=== PATIENT | female | born 1970 | race Caucasian/White ===

== ENCOUNTER 2017-02-05 18:25 | Emergency (ER) | payer MEDICAID ==
[~2017-02-05] VITALS: Ht 167.6 cm; Wt 92.5 kg
[~2017-02-05 18:25] MED LIST: AMO500 PO; HYDR-3720 PO
[2017-02-05 18:28] VITALS: Ht 167.6 cm; Wt 92.5 kg
[2017-02-05] MEDS ORDERED: morphine 4 MG/ML VIAL IV STA (19:30)
[2017-02-05] MEDS ORDERED: ONDANSETRON 4 MG INJ IV STA (19:30)
--- NOTE | 2017-02-05 20:26 | RADRPT ---
PROCEDURE: US Abdomen. CLINICAL INDICATION: Right upper quadrant pain, abdominal pain TECHNIQUE: Multiple real-time images were acquired of the patient's abdomen and retroperitoneum ut ilizing a high resolution transducer. COMPARISON: None FINDINGS: Visualized portions of the pancreatic head and proximal body are unremarkable. The liver is diffus zain increased in echogenicity. This most likely represents fatty infiltration of the liver. The gallbladder is normal without evidence of cholelithiasis, pericholecystic fluid or gallbladder w all thickening. The technologist reports a negative sonographic Ward's sign. The common bile du ct measures 4.3 mm in maximal dimension. No free fluid is identified. The right kidney is unremarkable without evidence of hydronephrosis or mass. The right kidney measu res 11.6 cm in length. IMPRESSION: 1. The liver is diffusely increased in echogenicity. This most likely represents fatty infiltratio n of the liver. 2. Otherwise, no significant abnormalities are identified. RPTAT:AAJJ Physician Keri Date Time Electronically viewed and signed by Physician Keri on 02/05/2017 20:26 /
[2017-02-05 20:40] LABS: BASOPHIL # 0.1 10^3/ul (0.0-0.1); BASOPHILS % 0.5 % (0.0-2.0); EOSINOPHILS # 0.2 10^3/ul (0.0-0.5); EOSINOPHILS % 1.7 % (0.0-7.0); HEMATOCRIT 37.3 % (37.0-47.0); HEMOGLOBIN 11.8 g/dl (12.0-16.0); LYMPHOCYTES # 3.1 10^3/ul (0.8-2.9); LYMPHOCYTES % 25.3 % (15.0-51.0); MEAN CORPUSCULAR HEMOGLOBIN 25.3 pg (29.0-33.0); MEAN CORPUSCULAR HGB CONC 31.6 g/dl (32.0-37.0); MEAN PLATELET VOLUME 10.4 fl (7.4-10.4); MONOCYTE # 0.8 10^3/ul (0.3-0.9); MONOCYTES % 6.7 % (0.0-11.0); NEUTROPHIL # 7.9 10^3/ul (1.6-7.5); NEUTROPHILS % 65.5 % (39.0-77.0); PLATELET COUNT 410 10^3/UL (140-415); RED BLOOD COUNT 4.66 10^6/ul (4.20-5.40); RED CELL DISTRIBUTION WIDTH 16.2 % (11.5-14.5); WHITE BLOOD COUNT 12.1 10^3/ul (4.8-10.8)
[2017-02-05 20:51] LABS: INR 0.81; PROTIME 11.2 Sec (12.2-14.2); PT RATIO 0.9
[2017-02-05 20:52] LABS: PARTIAL THROMBOPLASTIN TIME 26.2 Sec (25.0-35.0)
[2017-02-05 20:55] LABS: ALANINE AMINOTRANSFERASE 41 IU/L (13-69); ALBUMIN 4.9 g/dl (3.3-4.9); ALBUMIN/GLOBULIN RATIO 1.28; ALKALINE PHOSPHATASE 75 IU/L (42-121); ANION GAP 18 (8-16); ASPARTATE AMINO TRANSFERASE 33 IU/L (15-46); BLOOD UREA NITROGEN 12 mg/dl (7-20); CALCIUM 9.6 mg/dl (8.4-10.2); CARBON DIOXIDE 26 mmol/L (21-31); CHLORIDE 104 mmol/L (97-110); CREATININE 0.77 mg/dl (0.44-1.00); GLUCOSE 121 mg/dl (70-220); POTASSIUM 3.5 mmol/L (3.5-5.1); SODIUM 144 mmol/L (135-144); TOTAL PROTEIN 8.7 g/dl (6.1-8.1)
[2017-02-05 21:03] LABS: ADD UMIC YES; UR ASCORBIC ACID NEGATIVE (NEGATIVE); UR BACTERIA FEW /HPF (NONE SEEN); UR BILIRUBIN (Dip) NEGATIVE (NEGATIVE); UR BLOOD (Dip) 3+ mg/dL (NEGATIVE); UR CLARITY CLEAR (CLEAR); UR COLOR YELLOW (YELLOW); UR GLUCOSE (Dip) 2+ mg/dL (NEGATIVE); UR KETONES (Dip) NEGATIVE (NEGATIVE); UR LEUKOCYTE ESTERASE (Dip) TRACE Leu/ul (NEGATIVE); UR NITRITE (Dip) NEGATIVE (NEGATIVE); UR RBC 80 /HPF (0-5); UR SPECIFIC GRAVITY (Dip) 1.013 (1.003-1.030); UR SQUAMOUS EPITHELIAL CELL FEW /HPF (FEW); UR TOTAL PROTEIN (Dip) NEGATIVE (NEGATIVE); UR UROBILINOGEN (Dip) NEGATIVE (NEGATIVE)
[2017-02-05] MEDS ORDERED: SOD CHLORIDE 0.9% 100 ML ONE (21:03)
[2017-02-05] MEDS ORDERED: IOHEXOL 300MG/ML 150 ML BTL ONE (21:03)
[2017-02-05 21:11] LABS: TROPONIN-I < 0.012 ng/ml (0.00-0.12)
--- NOTE | 2017-02-05 21:30 | RADRPT ---
PROCEDURE: CT Abdomen and Pelvis with contrast. CLINICAL INDICATION: Abdominal pain radiating to the back, nausea. TECHNIQUE: A CT scan of the abdomen and pelvis was performed with intravenous contrast. The patie nt was scanned following the uncomplicated intravenous administration of 100 cc of Isovue 300. Maru nal and sagittal reformatted images were obtained from the axial source images. Images were reviewed on a high-resolution PACS workstation. CTDIvol: 22.09 mGy. DLP: 1147.36 mGy-cm. One or more of the following dose reduction techniques were used: - Automated exposure control. - Adjustment of the mA and/or kV according to patient size. - Use of iterative reconstruction technique. COMPARISON: Abdominal ultrasound dated 02/05/2017. FINDINGS: The lung bases are clear. The liver is enlarged (18.2 cm) and diffusely hypodense, consistent with fatty infiltration. The gal lbladder is normal in appearance. The common bile duct is not dilated. The spleen is not enlarged. N o pancreatic lesion is identified and there is no pancreatic ductal dilatation. The adrenal glands a re unremarkable. The kidneys are normal in size. There is no perinephric fat stranding. No hydronephrosis is seen. The small and large bowel are normal in caliber. There is no bowel wall thickening. The appendix is normal. The urinary bladder is unremarkable. There is a 3.8 cm right uterine mass, probably a fibroid. The ovaries are unremarkable. No lymphadenopathy is identified. There is no ascites. No pneumoperitoneum is seen. There are no art erial calcifications. There is no aortic aneurysm or dissection. No suspicious osseous lesion is idenitified. IMPRESSION: 1. No inflammation or lymphadenopathy. 2. Normal appendix. 3. No aortic aneurysm or dissection. 4. Hepatomegaly and fatty infiltration of the liver. 5. 3.8 cm right uterine fibroid. RPTAT: HTAR .Corona Browning MD, Date Time Electronically viewed and signed by .Corona Browning MD, MD on 02/05/2017 21:29 .R/
[2017-02-05] MEDS ORDERED: NAPR-260 PO (21:55)
[2017-02-05] MEDS ORDERED: CEPH-443 PO (21:56)
[2017-02-05 22:10] VITALS: BP 150/84; PULSE 94; RESP 20; TEMP 99.3
--- NOTE | 2017-02-05 23:38 | ERD ---
ER Documentation Chief Complaint Date/Time DATE: 02/05/17 TIME: 23:32 Chief Complaint right sided abd pain x 1 week HPI This patient is a 46-year-old female presenting to the emergency department for right lower abdominal pain ongoing intermittently for the past week. Symptoms are worsening over the past 2 days. The patient also reports nausea. Last bowel movement was this morning and was normal. She is currently on her menstrual cycle. Symptoms are currently moderate in severity. She denies vomiting, diarrhea, urinary symptoms, or other symptoms currently. ROS All systems reviewed and are negative except as per history of present illness. Medications Home Meds Active Scripts Cephalexin* (Keflex*) 500 Mg Capsule, 500 MG PO TID for 7 Days, #21 CAP Prov:ZAHRAA MARSHALL PA-C 02/05/17 Naproxen* (Naprosyn*) 500 Mg Tablet, 500 MG PO BID Y for PAIN AND/OR INFLAMMATION, #30 TAB Prov:ZAHRAA MARSHALL PA-C 02/05/17 Hydrocodone Bit-Acetaminophen* ([place]*) 7.5-325 Tablet, 2 TAB PO Q4H Y for PAIN , #20 TAB Prov:LEKKOS,APOSTOLOS A. DO 03/23/16 Amoxicillin* (Amoxicillin*) 500 Mg Cap, 500 MG PO TID for 10 Days, CAP Prov:LEKKOS,APOSTOLOS A. DO 03/23/16 Allergies Allergies: Coded Allergies: No Known Allergy (Unverified , 03/23/16) PMhx/Soc Medical and Surgical Hx: pt denies Medical Hx, pt denies Surgical Hx History of Surgery: No Anesthesia Reaction: No Hx Neurological Disorder: No Hx Respiratory Disorders: No Hx Cardiac Disorders: No Hx Psychiatric Problems: No Hx Miscellaneous Medical Probl: No Hx Alcohol Use: No Hx Substance Use: No Hx Tobacco Use: No Smoking Status: Never smoker Physical Exam Vitals Vital Signs Date Time Temp Pulse Resp B/P Pulse Ox O2 Delivery O2 Flow Rate FiO2 02/05/17 22:10 99.3 94 20 150/84 99 Room Air 02/05/17 18:28 99.3 96 20 166/87 98 Physical Exam Const: Nontoxic, well-appearing female in mild distress secondary to pain. Head: Atraumatic Eyes: Normal Conjunctiva ENT: Normal External Ears, Nose and Mouth. Neck: Full range of motion..~ No meningismus. Resp: Clear to auscultation bilaterally Cardio: Regular rate and rhythm, no murmurs Abd: Soft, there is some tenderness palpation of the right lower quadrant but no rebound or guarding noted, non distended. Normal bowel sounds Skin: No petechiae or rashes Back: No midline or flank tenderness Ext: No cyanosis, or edema Neur: Awake and alert Psych: Normal Mood and Affect Result Diagram: 02/05/17201402/05/172014 Results 24 hrs Laboratory Tests Test 02/05/17 20:15 White Blood Count 12.110^3/ul Red Blood Count 4.6610^6/ul Hemoglobin 11.8g/dl Hematocrit 37.3% Mean Corpuscular Volume 80.0fl Mean Corpuscular Hemoglobin 25.3pg Mean Corpuscular Hemoglobin Concent 31.6g/dl Red Cell Distribution Width 16.2% Platelet Count 03982^3/UL Mean Platelet Volume 10.4fl Neutrophils % 65.5% Lymphocytes % 25.3% Monocytes % 6.7% Eosinophils % 1.7% Basophils % 0.5% Nucleated Red Blood Cells % 0.0/100WBC Neutrophils # 7.910^3/ul Lymphocytes # 3.110^3/ul Monocytes # 0.810^3/ul Eosinophils # 0.210^3/ul Basophils # 0.110^3/ul Nucleated Red Blood Cells # 0.010^3/ul Prothrombin Time 11.2Sec Prothrombin Time Ratio 0.9 INR International Normalized Ratio 0.81 Activated Partial Thromboplast Time 26.2Sec Urine Color YELLOW Urine Clarity CLEAR Urine pH 6.0 Urine Specific [employer] 1.013 Urine Ketones NEGATIVEmg/dL Urine Nitrite NEGATIVEmg/dL Urine Bilirubin NEGATIVEmg/dL Urine Urobilinogen NEGATIVEmg/dL Urine Leukocyte Esterase TRACELeu/ul Urine Microscopic RBC 80/HPF Urine Microscopic WBC 1/HPF Urine Squamous Epithelial Cells FEW/HPF Urine Bacteria FEW/HPF Urine Hemoglobin 3+mg/dL Urine Glucose 2+mg/dL Urine Total Protein NEGATIVEmg/dl Sodium Level 144mmol/L Potassium Level 3.5mmol/L Chloride Level 104mmol/L Carbon Dioxide Level 26mmol/L Anion Gap 18 Blood Urea Nitrogen 12mg/dl Creatinine 0.77mg/dl Glucose Level 121mg/dl Calcium Level 9.6mg/dl Total Bilirubin 0.0mg/dl Direct Bilirubin 0.00mg/dl Indirect Bilirubin 0.0mg/dl Aspartate Amino Transf (AST/SGOT) 33IU/L Alanine Aminotransferase (ALT/SGPT) 41IU/L Alkaline Phosphatase 75IU/L Troponin I < 0.012ng/ml Total Protein 8.7g/dl Albumin 4.9g/dl Globulin 3.80g/dl Albumin/Globulin Ratio 1.28 Lipase 217U/L Current Medications Medications (Trade) Dose Ordered Sig/Lg Route PRN Reason Start Time Stop Time Status Last Admin Dose Admin Morphine Sulfate (morphine) 4 mg ONCE STAT IV 02/05/17 19:30 02/05/17 19:33 DC 02/05/17 20:23 Ondansetron HCl (Zofran Inj) 4 mg ONCE STAT IV 02/05/17 19:30 02/05/17 19:33 DC 02/05/17 20:22 IV Flush 10 ml 10 ml STK-MED ONCE .ROUTE 02/05/17 21:03 02/05/17 21:04 DC 02/05/17 21:15 Sodium Chloride (NS) 100 ml @ ud STK-MED ONCE .ROUTE 02/05/17 21:03 02/05/17 21:04 DC 02/05/17 21:15 Iohexol (Omnipaque 300mg/ ml) 150 ml STK-MED ONCE .ROUTE 02/05/17 21:03 02/05/17 21:04 DC 02/05/17 21:15 [place] [id number] Radiology Main Line: [phone] DIAGNOSTIC IMAGING REPORT Patient: DALE GRECO : 1970 Age: 46 Sex: F MR #: [id number] DOS: 02/05/17 193 Ordering MD: ZAHRAA MARSHALL PA-C Location: E Room/Bed: PROCEDURE: CT Abdomen and Pelvis with contrast. CLINICAL INDICATION: Abdominal pain radiating to the back, nausea. TECHNIQUE: A CT scan of the abdomen and pelvis was performed with intravenous contrast. The patient was scanned following the uncomplicated intravenous administration of 100 cc of Isovue 300. Coronal and sagittal reformatted images were obtained from the axial source images. Images were reviewed on a high-resolution PACS workstation. CTDIvol: 22.09 mGy. DLP: 1147.36 mGy-cm. One or more of the following dose reduction techniques were used: - Automated exposure control. - Adjustment of the mA and/or kV according to patient size. - Use of iterative reconstruction technique. COMPARISON: Abdominal ultrasound dated 02/05/2017. FINDINGS: The lung bases are clear. The liver is enlarged (18.2 cm) and diffusely hypodense, consistent with fatty infiltration. The gallbladder is normal in appearance. The common bile duct is not dilated. The spleen is not enlarged. No pancreatic lesion is identified and there is no pancreatic ductal dilatation. The adrenal glands are unremarkable. The kidneys are normal in size. There is no perinephric fat stranding. No hydronephrosis is seen. The small and large bowel are normal in caliber. There is no bowel wall thickening. The appendix is normal. The urinary bladder is unremarkable. There is a 3.8 cm right uterine mass, probably a fibroid. The ovaries are unremarkable. No lymphadenopathy is identified. There is no ascites. No pneumoperitoneum is seen. There are no arterial calcifications. There is no aortic aneurysm or dissection. No suspicious osseous lesion is idenitified. IMPRESSION: 1. No inflammation or lymphadenopathy. 2. Normal appendix. 3. No aortic aneurysm or dissection. 4. Hepatomegaly and fatty infiltration of the liver. 5. 3.8 cm right uterine fibroid. RPTAT: HTAR .Corona Browning MD, MD Date Time Electronically viewed and signed by .Corona Browning MD, MD on 02/05/2017 21:29 .R/ CC: ZAHRAA MARSHALL PA-C PROCEDURE: US Abdomen. CLINICAL INDICATION: Right upper quadrant pain, abdominal pain TECHNIQUE: Multiple real-time images were acquired of the patient's abdomen and retroperitoneum utilizing a high resolution transducer. COMPARISON: None FINDINGS: Visualized portions of the pancreatic head and proximal body are unremarkable. The liver is diffusely increased in echogenicity. This most likely represents fatty infiltration of the liver. The gallbladder is normal without evidence of cholelithiasis, pericholecystic fluid or gallbladder wall thickening. The technologist reports a negative sonographic Ward's sign. The common bile duct measures 4.3 mm in maximal dimension. No free fluid is identified. The right kidney is unremarkable without evidence of hydronephrosis or mass. The right kidney measures 11.6 cm in length. IMPRESSION: 1. The liver is diffusely increased in echogenicity. This most likely represents fatty infiltration of the liver. 2. Otherwise, no significant abnormalities are identified. Procedures/MDM EMERGENCY DEPARTMENT COURSE / MEDICAL DECISION MAKING: This is a 46-year-old female who comes to the emergency room secondary to complaints of abdominal pain. The patient was given IV morphine, IV Zofran in the department. On re-evaluation , the patient was feeling improved. Lab results reviewed. CBC: White blood cell count is 12.1, but not significant. The remainder of the CBC was within normal limits. Chemistry: No significant acute abnormalities. Troponin: Within normal limits. UA: Concerning for mild urinary tract infection. Lipase: Within normal limits. Radiology: Impression of CT scan of abdomen and pelvis with contrast: 1. No inflammation or lymphadenopathy. 2. Normal appendix. 3. No aortic aneurysm or dissection. 4. Hepatomegaly and fatty infiltration of the liver. 5. 3.8 cm right uterine fibroid. Impression of gallbladder ultrasound: 1. The liver is diffusely increased in echogenicity. This most likely represents fatty infiltration of the liver. 2. Otherwise, no significant abnormalities are identified. The primary diagnosis is urinary tract infection. Secondary diagnosis is uterine fibroid. Other diagnoses include abdominal pain. I have low suspicion for acute abdomen, bowel obstruction, septicemia, or other emergent conditions. Discharge: I have discussed the lab results and diagnostic findings with the patient and answered any questions or concerns. The patient was discharged with a prescription for cephalexin and naproxen. The patient was advised to followup with their PMD in 1-2 days and to return to the Emergency Department if there are any new or worsening symptoms. The patient understood and agreed with the diagnosis, treatment and plan. The patient is stable for discharge at this time. Departure Diagnosis: Primary Impression: Urinary tract infection Urinary tract infection type: site unspecified Hematuria presence: without hematuria Qualified Code: N39.0 - Urinary tract infection without hematuria, site unspecified Additional Impressions: Uterine fibroid Uterine leiomyoma location: unspecified location Qualified Code: D25.9 - Uterine leiomyoma, unspecified location Abdominal pain Abdominal location: unspecified location Qualified Code: R10.9 - Abdominal pain, unspecified location Condition: Fair Patient Instructions: Abdominal Pain, Understanding Urinary Tract Infections ( UTIs), Uterine Fibroids Ref[facility] Usted se montes hecho un examen mdico de control que le indica que no est en snehal condicin que requiera tratamiento urgente en el Departamento de Emergencia. Un estudio ms profundo y el tratamiento de carroll condicin pueden esperar sin ningn riesgo hasta que usted sea atendida/o en el consultorio de carroll mdico o snehal cl rayo. Es responsabilidad suya arreglar snehal jyothi para el seguimiento del gerry. MANEJO DE CONDICIONES NO URGENTES EN EL FUTURO 1) Si usted tiene un mdico de atencin primaria: Usted debera llamar a carroll mdico de atencin primaria antes de venir al departamento de emergencia. Despus de las horas de consultorio, carroll doctor o carroll asociado/a est disponible por telfono. El mdico o enfermero de jarrett en el servicio telefnico puede asesorarle por sharon medio para atender el problema, o gerry contrario se puede programar snehal jyothi. 2) Si usted no tiene un mdico de atencin primaria: Llame al mdico o clnica de referencia que aparece abajo saima las horas de consultorio para hacer snehal jyothi para que le vean. CLINICAS: [facility] [phone] [facility] [phone] [facility] [phone] [place] [phone] [facility] 562 [phone] [address] [facility] [phone] [address] Additional Instructions: No mas mejor en 2-3 douglas, regresar. Mas peor en 24 horas, regresear rapidamente. Ir a doctor primario in 5-7 douglas. Usar instrucciones cuando connie medicamento. ZAHRAA MARSHALL PA-C Feb 05, 2017 23:38
== END 2017-02-05 22:12 | disposition home or self-care (01) ==
LOC: FTE 18:25
DX: N39.0 Urinary tract infection, site not specified (principal); D25.9 Leiomyoma of uterus, unspecified; R11.0 Nausea
CPT/HCPCS: 36415; 74177; 76705; 80053; 81001; 83690; 84484; 85025; 85610; 85730; 96374; 96375; J2270; J2405; Q9967; Z7502; Z7610

== ENCOUNTER 2017-11-29 12:26 | Emergency (ER) | END 2017-11-29 17:07 | disposition home or self-care (01) ==